=== PATIENT | female | born 1980 | race Hispanic/Latino ===

== ENCOUNTER 2019-08-24 04:43 | Emergency (ER) | payer OTHER ==
[~2019-08-24 04:43] MED LIST: INSULIN REG; NPH SQ
[2019-08-24] MEDS ORDERED: LIDOCAINE HCL 1% 20 ML VIAL ONE (05:26)
[2019-08-24] MEDS ORDERED: TETANUS/DIPHTHERIA TOXOID [ADULT] 0.5 ML VIAL IM ONE (05:27)
== END 2019-08-24 07:08 | disposition home or self-care (01) ==
LOC: EDH 04:43
DX: S91.311A Laceration without foreign body, right foot, initial encounter (principal); E11.9 Type 2 diabetes mellitus without complications; M19.90 Unspecified osteoarthritis, unspecified site; Z98.890 Other specified postprocedural states; W25.XXXA Contact with sharp glass, initial encounter; Y93.89 Activity, other specified; Y92.89 Other specified places as the place of occurrence of the external cause; Y99.8 Other external cause status
CPT/HCPCS: 12042; 73610; 81025; 90471; 90714

== ENCOUNTER 2020-06-06 15:54 | Inpatient (IN) | payer OTHER ==
[~2020-06-06] VITALS: Ht 160 cm; Wt 152.2 kg
[2020-06-06 16:41] LABS: BASOPHILS % (AUTO) 0.2 % (0.0-5.0); EOSINOPHILS % (AUTO) 0.4 % (0.0-8.0); LYMPHOCYTES % (AUTO) 3.2 % (21.0-51.0); MEAN CORPUSCULAR HEMOGLOBIN 26.9 pg (27.0-33.0); MEAN CORPUSCULAR HGB CONC 32.2 g/dL (32.0-36.0); MEAN CORPUSCULAR VOLUME 83.7 fL (79-99); MONOCYTES % (AUTO) 3.7 % (3.0-13.0); PLATELET COUNT (AUTO) 261 K/uL (130-400); RED BLOOD CELL COUNT(AUTO) 4.42 MIL/uL (4.00-5.50); RED CELL DISTRIBUTION WIDTH 14.6 % (11.0-15.5); WHITE BLOOD COUNT (AUTO) 23.6 K/uL (4.8-10.8)
[2020-06-06 16:49] LABS: APPEARANCE,URINE Clear (CLEAR); BILIRUBIN,URINE Small (NEGATIVE); COLOR,URINE Dark Yellow (YELLOW); GLUCOSE, URINE (UA) 250 mg/dL (NEGATIVE); KETONES,URINE 15 mg/dL (NEGATIVE); LEUKOCYTE ESTERASE ,URINE Negative (NEGATIVE); NITRATE,URINE Negative (NEGATIVE); OCCULT BLOOD,URINE Negative (NEGATIVE); PROTEIN,URINE POS 1+ mg/dL (NEGATIVE)
[2020-06-06 16:54] LABS: CREATININE 1.1 mg/dL (0.5-1.5); POTASSIUM 3.4 mmol/L (3.5-5.1)
[2020-06-06 16:55] LABS: INR 1.14 (0.85-1.15); PARTIAL THROMBOPLASTIN TIME 33.6 SEC (26.3-35.5); PROTHROMBIN TIME 12.2 SEC (9.6-11.6)
[2020-06-06 16:59] LABS: BACTERIA,URINE Rare /HPF (None Seen); MUCUS,URINE Few LPF (None Seen); RBC,URINE 0-1 /HPF (0-1); SQUAMOUS EPITHELIAL CELL,UR Few /HPF (0-2); WBC,URINE 0-1 /HPF (0-1)
[2020-06-06 16:59] LABS: ALBUMIN 3.2 g/dL (3.5-5.0); BILIRUBIN,TOTAL 0.5 mg/dL (0.2-1.0)
[2020-06-06 17:00] LABS: YEAST,URINE BUDDING Few /HPF (None Seen)
[2020-06-06] MEDS ORDERED: ZOSYN 3.375GM+NS 50ML 50 ML IV ONE (17:00)
[2020-06-06] MEDS ORDERED: ONDANSETRON HCL 4 MG/2 ML VIAL ONE (17:00)
[2020-06-06] MEDS ORDERED: MORPHINE SULFATE 2 MG/ML 1ML SYG ONE (17:00)
[2020-06-06] MEDS ORDERED: VANCOMYCIN 1GM+NS 250ML 250 ML IV ONE (18:22)
[2020-06-06] MEDS ORDERED: DEXTROSE 50%-WATER 50 ML DISP.SYRIN IV ONE (18:42)
[2020-06-06] MEDS ORDERED: VANCOMYCIN PROTOCOL PER PHARMACY IV SCH (19:15)
[2020-06-06] MEDS: SODIUM CHLORIDE 0.9% 1000ML 1,000 ML IV SCH (19:15)
[2020-06-06] MEDS ORDERED: POTASSIUM CHLORIDE 10% ELIXIR 20 MEQ/15 ML UDCUP PO PRN (19:15)
[2020-06-06] MEDS ORDERED: DEXTROSE 50%-WATER 50 ML DISP.SYRIN IV PRN (19:15)
[2020-06-06] MEDS ORDERED: GLUCAGON 1MG KIT 1 MG ML IM PRN (19:15)
[2020-06-06] MEDS ORDERED: LACTULOSE 20 GM/30 ML UDCUP PO PRN (19:15)
[2020-06-06] MEDS ORDERED: ONDANSETRON HCL 4 MG/2 ML VIAL IV PRN (19:15)
[2020-06-06] MEDS ORDERED: MORPHINE SULFATE 2 MG/ML 1ML SYG IV PRN (19:15)
[2020-06-06] MEDS ORDERED: ACETAMINOPHEN 325 MG TAB PO PRN ×2 (19:15)
[2020-06-06] MEDS: INSULIN HUMULIN R 100 UNIT/ML 3ML SQ SCH (21:00)
[2020-06-06] MEDS: FAMOTIDINE 20MG TAB 20 MG TAB PO SCH (21:00)
[2020-06-06] MEDS ORDERED: VANCOMYCIN 1.5 GM in SODIUM CHLORIDE 0.9% 250 ML IV ONE (21:00)
[2020-06-06] MEDS ORDERED: COMPOUND IV REFRIGERATED 1 EACH IVSOLN MISC PRN (21:00)
[2020-06-06] MEDS ORDERED: MORPHINE SULFATE 4 MG/1ML SYG ONE (21:19)
[2020-06-06] MEDS ORDERED: ACETAMINOPHEN 325 MG TAB ONE (22:01)
[2020-06-06] MEDS ORDERED: FAMOTIDINE/PF 20 MG/2 ML VIAL IV ONE (22:02)
[2020-06-07] MEDS ORDERED: MORPHINE SULFATE 4 MG/1ML SYG ONE ×2 (00:51→04:25)
[2020-06-07] MEDS: ZOSYN 3.375GM+NS 50ML 50 ML IV SCH ×3 (01:00→17:00)
[2020-06-07] MEDS ORDERED: ZOSYN 3.375GM+NS 50ML 50 ML IV ONE ×3 (03:06→19:59)
[2020-06-07] MEDS: SODIUM CHLORIDE 0.9% 1000ML 1,000 ML IV SCH ×2 (05:15→15:15)
[2020-06-07 06:39] LABS: BASOPHILS % (AUTO) 0.3 % (0.0-5.0); HEMATOCRIT 35.8 % (36-48); LYMPHOCYTES % (AUTO) 7.2 % (21.0-51.0); MEAN CORPUSCULAR HEMOGLOBIN 27.5 pg (27.0-33.0); MEAN CORPUSCULAR HGB CONC 31.3 g/dL (32.0-36.0); MONOCYTES % (AUTO) 6.6 % (3.0-13.0); NEUTROPHILS % (AUTO) 84.4 % (40.0-77.0); PLATELET COUNT (AUTO) 233 K/uL (130-400); RED BLOOD CELL COUNT(AUTO) 4.07 MIL/uL (4.00-5.50); RED CELL DISTRIBUTION WIDTH 14.9 % (11.0-15.5); WHITE BLOOD COUNT (AUTO) 15.5 K/uL (4.8-10.8)
[2020-06-07 06:51] LABS: POTASSIUM 4.5 mmol/L (3.5-5.1)
[2020-06-07] MEDS: INSULIN HUMULIN R 100 UNIT/ML 3ML SQ SCH ×4 (07:30→21:00)
[2020-06-07] MEDS ORDERED: INSULIN HUMULIN R 100 UNIT/ML 3ML ONE ×2 (08:31→12:39)
[2020-06-07] MEDS: VANCOMYCIN 1.75 GM in SODIUM CHLORIDE 0.9% 250 ML IV SCH (09:00)
[2020-06-07] MEDS: FAMOTIDINE 20MG TAB 20 MG TAB PO SCH ×2 (09:00→21:00)
[2020-06-07] MEDS: ENOXAPARIN SODIUM 40 MG/0.4 ML SYRINGE SQ SCH (09:00)
[2020-06-07] MEDS ORDERED: SODIUM CHLORIDE 0.9% 1000ML 1,000 ML IV ONE (10:07)
[2020-06-07] MEDS ORDERED: FAMOTIDINE 20MG TAB 20 MG TAB ONE ×2 (10:07→22:11)
[2020-06-07] MEDS ORDERED: ENOXAPARIN SODIUM 40 MG/0.4 ML SYRINGE SQ ONE (10:07)
[2020-06-07] MEDS ORDERED: HYDROMORPHONE 1 MG/1 ML AMP ONE ×2 (12:06→23:40)
[2020-06-07] MEDS ORDERED: GADODIAMIDE 10 MMOL/20 ML VIAL IV ONE (14:23)
--- NOTE | 2020-06-07 15:42 | NUR ---
AGUSTINA NOTE/IA UNABLE TO MET WITH PATIENT IN ROOM, NEXT OF KIN CALLED, PASCALE PERALES. PER MOTHER, PATIENT LIVES WITH SPOUSE AND 3 OF HER CHILDREN, IS SEMI INDEPENDENT WITH ADLS, HAS USE OF [facility] FOR WOUND CARE DAILY, NO DME IN USE AND FEELS SAFE FOR PATIENT TO RETURN HOME ONCE DISCHARGED. Addendum: 06/07/20 at 1544 by AMBER ERWIN RN CM Amended: Links added.
[2020-06-07] MEDS ORDERED: HYDROMORPHONE HCL 0.5 MG/0.5 ML ML ONE (19:48)
[2020-06-08] VITALS (7 sets, daily range): BP systolic 119–160; BP diastolic 53–88
--- NOTE | 2020-06-08 00:20 | NUR ---
ADMIT PT ADMITTED TO ROOM 314, FROM ER. PT CLAIMS OF PAINS TO LLE BUT IS ALREADY MEDICATED BY ER NURSE WITH DILAUDID. ADMISSION CARE DONE. ADMISSION DATA BASE COMPLETED. STARTED IVF OR NS REGULATED AT 100CC/HR. LEXI SWANSON AND SACHA NORMAN. KEPT LLE ELEVATED IN BED. IN FOR MORE CARE AND MANAGEMENT. Addendum: 06/08/20 at 0159 by QUAN LENZ RN RN Amended: Links added.
[2020-06-08] MEDS: SODIUM CHLORIDE 0.9% 1000ML 1,000 ML IV SCH ×3 (00:49→21:56)
[2020-06-08] MEDS: ZOSYN 3.375GM+NS 50ML 50 ML IV SCH ×3 (00:49→18:00)
[2020-06-08] MEDS: VANCOMYCIN 1.75 GM in SODIUM CHLORIDE 0.9% 250 ML IV SCH ×2 (00:51→11:08)
[2020-06-08] MEDS ORDERED: INSU100V3 SQ (01:13)
[2020-06-08] MEDS ORDERED: DULO60CA64 PO (01:13)
[2020-06-08] MEDS ORDERED: METO25TA6 PO (01:13)
[2020-06-08] MEDS ORDERED: GABA600T10 PO (01:13)
[2020-06-08] MEDS ORDERED: TYL2 PO (01:13)
[2020-06-08] MEDS ORDERED: APIX5TAB PO (01:13)
[2020-06-08] MEDS ORDERED: NPH,100V SQ (01:13)
[2020-06-08] MEDS ORDERED: TRAZ-187 PO (01:13)
[2020-06-08] MEDS: KETOROLAC TROMETHAMINE 15MG/ML IV SCH (02:00)
[2020-06-08] MEDS ORDERED: KETOROLAC TROMETHAMINE 30MG/ML ONE (02:05)
--- NOTE | 2020-06-08 02:15 | NUR ---
PAIN PT CLAIMS OF PAINS STILL ON LLE. PAGED AJ, ASSOCIATE PROFESSOR PHYSICIAN HEELER FOR HOSPITALIST, VIA ANSWERING SERVICE. ASSOCIATE PROFESSOR PHYSICIAN CALLED AND REFERRED PT'S MEDS. NEW ORDERS GIVEN, PLEASE REFER TO CPOE. MEDICATED PT WITH TORADOL IV ORDERED. PIV TO RAC NOTED TO BE INFILTRATED, DISCONTINUED WITH CATHETER INTACT. RE-INSERTED PIV G20 TO RFA THEN CONTINUED IV ZOSYN INFUSION. PT CLAIMS OF HAVING SOB JUST MOVING IN BED. WITH CLEAR BREATH SOUNDS UPON AUSCULTATION. O2 SATS=94%. KEPT PT ON O2 AT 2LPM VIA NC. KEPT RESTED AND COMFORTABLE IN BED WITH HOB ELEVATED. CALL LIGHT WITHIN REACH. WILL RE-ASSESS PT. Addendum: 06/08/20 at 0428 by QUAN LENZ RN RN Amended: Links added.
[2020-06-08] MEDS ORDERED: TRAZODONE HCL 100 MG TABLET PO PRN (03:00)
[2020-06-08] MEDS ORDERED: DULOXETINE HCL 30 MG CAP PO SCH (03:00)
[2020-06-08 05:49] LABS: BASOPHILS % (AUTO) 0.3 % (0.0-5.0); EOSINOPHILS % (AUTO) 0.3 % (0.0-8.0); HEMATOCRIT 34.4 % (36-48); LYMPHOCYTES % (AUTO) 10.9 % (21.0-51.0); MEAN CORPUSCULAR HEMOGLOBIN 26.8 pg (27.0-33.0); MEAN CORPUSCULAR HGB CONC 30.8 g/dL (32.0-36.0); MEAN CORPUSCULAR VOLUME 86.9 fL (79-99); MONOCYTES % (AUTO) 5.1 % (3.0-13.0); NEUTROPHILS % (AUTO) 82.8 % (40.0-77.0); PLATELET COUNT (AUTO) 234 K/uL (130-400); RED BLOOD CELL COUNT(AUTO) 3.96 MIL/uL (4.00-5.50); RED CELL DISTRIBUTION WIDTH 14.8 % (11.0-15.5); WHITE BLOOD COUNT (AUTO) 13.7 K/uL (4.8-10.8)
--- NOTE | 2020-06-08 05:49 | NUR ---
ROUNDS PT IS FAIRLY ASLEEP, SNORING. KEPT UNDISTURBED FOR NOW. CALL LIGHT WITHIN REACH. FOR MORE CARE.
[2020-06-08 06:02] LABS: POTASSIUM 3.5 mmol/L (3.5-5.1)
[2020-06-08] MEDS: INSULIN HUMULIN R 100 UNIT/ML 3ML SQ SCH ×4 (06:05→21:41)
[2020-06-08] MEDS: GABAPENTIN 300 MG CAPSULE PO SCH ×3 (09:00→21:50)
--- NOTE | 2020-06-08 09:51 | NUR ---
Answered call light, pt states "I just feel like I can't breathe and it scares me." Pt's mother stated "She has a fever and she's not hooked up to her antibiotics." Notified primary nurse Mahnaz, who will administer abx according to schedule. Pt's O2 sat is currently 92% on 2 LPM via NC, increased to 3 lpm. Temp is 98.1 orally and 98[address] Ruben Jackson of pt c/o, he entered room and assessed pt. Rec'd orders for stat 12 lead EKG, CXR, and telemetry monitoring. Orders entered and honored.
[2020-06-08] MEDS: FAMOTIDINE 20MG TAB 20 MG TAB PO SCH ×2 (10:26→21:49)
[2020-06-08] MEDS: DULOXETINE HCL 30 MG CAP PO SCH ×2 (10:27→21:49)
[2020-06-08] MEDS: METOPROLOL TARTRATE 25 MG TAB PO SCH (10:27)
[2020-06-08] MEDS: ENOXAPARIN SODIUM 40 MG/0.4 ML SYRINGE SQ SCH (10:29)
[2020-06-08] MEDS: HYDROMORPHONE 1 MG/1 ML AMP IVP PRN ×3 (11:07→23:34)
[2020-06-08] MEDS: ENOXAPARIN SODIUM 100 MG/1 ML SQ SCH ×2 (12:15→21:49)
[2020-06-08 13:19] LABS: ABG BASE EXCESS -5.1 mmol/L (-2.0-3.0); ABG HCO3 19.6 mmol/L (21.0-28.0); ABG OXYGEN SATURATION 90.1 % (95.0-99.0); ABG PCO2 35 mmHg (32-45)
[2020-06-08] MEDS ORDERED: IOHEXOL 350 MG/ML 100ML INFUS..BTL IV ONE (13:54)
[2020-06-08 14:02] LABS: CRP QUANTITATIVE 47.3 mg/L (0.00-9.0)
[2020-06-08] MEDS: POTASSIUM CHLORIDE 20 MEQ ERTAB PO PRN ×2 (19:16→21:50)
[2020-06-08] MEDS: TRAZODONE HCL 100 MG TABLET PO SCH (21:51)
[2020-06-09] MEDS ORDERED: IPRATROPIUM/ALBUTEROL SULFATE 3 ML SOLUTION IH SCH
[2020-06-09] MEDS ORDERED: SODIUM CHLORIDE 3% FOR INHALATION 4 ML/AMP VIAL.NEB IH ONE (00:24)
[2020-06-09] MEDS: ZOSYN 3.375GM+NS 50ML 50 ML IV SCH ×3 (00:39→17:38)
[2020-06-09] MEDS: FUROSEMIDE 10 MG/ML 2ML VIAL IV SCH ×3 (00:40→22:11)
[2020-06-09] MEDS: KETOROLAC TROMETHAMINE 15MG/ML IV SCH (02:00)
[2020-06-09] MEDS: HYDROMORPHONE 1 MG/1 ML AMP IVP PRN ×2 (03:31→13:48)
[2020-06-09 04:04] VITALS: BP 139/61
[2020-06-09 06:08] LABS: BASOPHILS % (AUTO) 0.2 % (0.0-5.0); EOSINOPHILS % (AUTO) 0.4 % (0.0-8.0); HEMATOCRIT 32.9 % (36-48); LYMPHOCYTES % (AUTO) 16.3 % (21.0-51.0); MEAN CORPUSCULAR HEMOGLOBIN 26.9 pg (27.0-33.0); MEAN CORPUSCULAR HGB CONC 31.6 g/dL (32.0-36.0); MONOCYTES % (AUTO) 8.7 % (3.0-13.0); NEUTROPHILS % (AUTO) 73.7 % (40.0-77.0); PLATELET COUNT (AUTO) 235 K/uL (130-400); RED BLOOD CELL COUNT(AUTO) 3.87 MIL/uL (4.00-5.50); RED CELL DISTRIBUTION WIDTH 14.8 % (11.0-15.5); WHITE BLOOD COUNT (AUTO) 11.6 K/uL (4.8-10.8)
[2020-06-09] MEDS: INSULIN HUMULIN R 100 UNIT/ML 3ML SQ SCH ×4 (06:26→22:06)
[2020-06-09 06:54] LABS: CREATININE 0.8 mg/dL (0.5-1.5); POTASSIUM 3.4 mmol/L (3.5-5.1)
[2020-06-09] MEDS: SODIUM CHLORIDE 0.9% 1000ML 1,000 ML IV SCH (07:15)
--- NOTE | 2020-06-09 07:15 | NUR ---
PATIENT UPDATE PT ASKED FOR PAIN MED DILAUDID 1 MG IVQ 4 HRS FOR LEFT LEG PAIN WITH PAIN CORE OF 8/10. CONSCIOUS ABOUT THE Q 4 HRS NEEDED TIME. BREATH SOUNDS VERY DIMINISHED, TACHYPNEIC RR IN THE HIGH 20'S. RT ADM THE ORDERED NEBULIZER TX WITH CPT. RT APPLIED THE CPAP MASK AND PT WAS COMFORTABLY SLEEPING WITH IT ON, WITH O2 SAT UP TO 96% BUT WOKE UP WHEN SHE HAD THE URGE TO VOID AND REFUSED TO PUT THE CPAP MASK BACK ON AFTERWARDS. REINFORCED INCENTIVE SPIROMETER EXERCISES. PT OBSERVED FACE TIMING ON HER PHONE WITH SOMEBODY DURING THE NIGHT IN BETWEEN THE DILAUDID PRN. PT AND MOTHER STRONGLY REFUSED THE CPAP SINCE SHE WAS APPARENTLY TOLD BY THE DOCTOR THAT IT'S NOT ADVISABLE.
[2020-06-09 08:54] VITALS: BP 104/60
[2020-06-09] MEDS: VANCOMYCIN 1.75 GM in SODIUM CHLORIDE 0.9% 250 ML IV SCH (09:37)
[2020-06-09] MEDS: FAMOTIDINE 20MG TAB 20 MG TAB PO SCH ×2 (09:38→20:30)
[2020-06-09] MEDS: GABAPENTIN 300 MG CAPSULE PO SCH ×3 (09:38→20:29)
[2020-06-09] MEDS: DULOXETINE HCL 30 MG CAP PO SCH ×2 (09:39→20:31)
[2020-06-09] MEDS: METHYLPREDNISOLONE SOD SUCC 40MG/ML 1ML IVP SCH ×2 (09:40→20:30)
[2020-06-09] MEDS: METOPROLOL TARTRATE 25 MG TAB PO SCH (09:40)
[2020-06-09] MEDS: ENOXAPARIN SODIUM 100 MG/1 ML SQ SCH (09:42)
[2020-06-09] MEDS ORDERED: ALBUTEROL INHALER 90MCG/INH IH SCH (12:00)
[2020-06-09 12:31] VITALS: BP 168/74
[2020-06-09] MEDS: POTASSIUM CHLORIDE 20 MEQ ERTAB PO PRN ×2 (13:47→17:38)
[2020-06-09] MEDS ORDERED: DEXAMETHASONE SOD PHOSPHATE 4 MG/ML 1ML VIAL IVP SCH (15:36)
[2020-06-09] MEDS: METOCLOPRAMIDE 10 MG/2 ML VIAL IVP SCH (17:35)
[2020-06-09] MEDS ORDERED: ALBUTEROL SULFATE 0.083% 2.5 MG/3 ML INH IH SCH (18:00)
[2020-06-09] MEDS: ALBUTEROL INHALER 90MCG/INH IH SCH (18:04)
[2020-06-09] MEDS: ENOXAPARIN SODIUM 80 MG/0.8 ML SQ SCH (20:28)
[2020-06-09] MEDS: TRAZODONE HCL 100 MG TABLET PO SCH (20:29)
[2020-06-09 21:33] VITALS: BP 133/75
--- NOTE | 2020-06-09 23:24 | NUR ---
NOTE CHANGED PT'S DRESSING TO LLE. APPLIED DRY GAUZE, WRAPPED WITH KERLIX AND SECURED WITH TAPE. PT REPORTS THAT H.H. HAD BEEN DOIN WOUND CARE PREVIOUSLY AND IS CONCERNED SINCE NO WOUND CARE HAS BEEN DONE SINCE ADMISSION. LLE APPEARS DRY WITH INCISIONS SCABBED OVER. SLIGHT AMOUNT OF LIGHT YELLOW DRAINAGE WAS NOTED ON PREVIOUS DRESSING.
--- NOTE | 2020-06-09 23:27 | NUR ---
NOTE ASSISTED PT TO BEDSIDE COMMODE. OBSERVED PT TO BE TACHYPNEIC (RR 24) WITH NC ON @ 5 LPM. PT VOICED THAT SHE WOULD RATHER GO TO THE RESTROOM. EXPLAINED THAT I WOULD ASSIST HER TO THE RESTROOM ONCE I GOT AN O2 TANK. ONCE O2 TANK IN ROOM HELPED PT TO BATHROOM, O2 @ 5 LPM VIA NC. INSTRUCTED FOR PT TO CALL FOR ASSISTANCE IN RESTROOM ONCE COMPLETED- PT VERBALIZED UNDERSTANDING. EVAN PCP ASSISTED PT BACK INTO BED. AN ADULT BRIEF WAS PLACED D/T PT REQUEST SINCE SHE IS ON HER MENSTRUAL CYCLE. VISIBLE SOB NOTED. O2 TUBING WAS CONNECTED TO WALL O2. AFTER A COUPLE OF MINUTES MT RR 20-22, REPORTS THAT SHE "FEELS BETTER". CALL LIGHT WITHIN REACH, BED LOCKED IN LOWEST POSITION. WILL CONT TO MONITOR.
--- NOTE | 2020-06-09 23:51 | NUR ---
EDIT TIME/ DATE: 06/09/20 @1934. Addendum: 06/09/20 at 2352 by CHANDAN URBINA RN RN Amended: Links added.
[2020-06-10 00:27] VITALS: BP 130/68
--- NOTE | 2020-06-10 00:27 | NUR ---
COVID PCR NEGATIVE. RESULTS REPORTED TO JORDI, RECYCLING CREW SUPERVISOR AND RADHA BASS. GURVINDER MANN GAVE ORDERS TO TRANSFER PT TO PCCU/ NON-COVID. JOVITA SUP MADE AWARE- PENDING CALL BACK FROM JORDI.
--- NOTE | 2020-06-10 00:34 | NUR ---
UPDATE PT TO TRANSFER TO [facility] PER VAT HOUSE LABORER.
[2020-06-10] MEDS: ZOSYN 3.375GM+NS 50ML 50 ML IV SCH ×3 (00:47→16:42)
[2020-06-10] MEDS: HYDROMORPHONE 1 MG/1 ML AMP IVP PRN (01:17)
[2020-06-10] MEDS: KETOROLAC TROMETHAMINE 15MG/ML IV SCH (02:00)
[2020-06-10 04:16] VITALS: BP 117/62
--- NOTE | 2020-06-10 05:00 | NUR ---
PATIENT'S IV LEAKING, WAS NOTED TO BE OUT. IV CATHETER INTACT, DRESSING PLACED
[2020-06-10] MEDS: ALBUTEROL INHALER 90MCG/INH IH SCH ×2 (06:00)
[2020-06-10 06:25] LABS: BASOPHILS % (AUTO) 0.1 % (0.0-5.0); HEMATOCRIT 32.6 % (36-48); LYMPHOCYTES % (AUTO) 10.5 % (21.0-51.0); MEAN CORPUSCULAR HEMOGLOBIN 26.9 pg (27.0-33.0); MEAN CORPUSCULAR HGB CONC 32.2 g/dL (32.0-36.0); MEAN CORPUSCULAR VOLUME 83.6 fL (79-99); MONOCYTES % (AUTO) 5.2 % (3.0-13.0); NEUTROPHILS % (AUTO) 83.5 % (40.0-77.0); PLATELET COUNT (AUTO) 256 K/uL (130-400); RED CELL DISTRIBUTION WIDTH 14.4 % (11.0-15.5); WHITE BLOOD COUNT (AUTO) 10.1 K/uL (4.8-10.8)
[2020-06-10 06:29] LABS: CREATININE 0.8 mg/dL (0.5-1.5); POTASSIUM 3.5 mmol/L (3.5-5.1)
[2020-06-10] MEDS: INSULIN HUMULIN R 100 UNIT/ML 3ML SQ SCH ×4 (06:55→21:00)
[2020-06-10 07:09] LABS: CRP QUANTITATIVE 217.7 mg/L (0.00-9.0)
--- NOTE | 2020-06-10 07:39 | NUR ---
ARRIVAL TO FLOOR PATIENT A & O 4, IN NO APPARENT DISTRESS. ARRIVED WITH 5L NC TO THE FLOOR. ORIENTED PATIENT TO THE ROOM, PLACED CALL LIGHT WITHIN REACH. Addendum: 06/10/20 at 0741 by LENIN MODI RN RN [id number] PATIENT ARRIVED TO FLOOR
[2020-06-10 07:45] VITALS: BP 117/57
--- NOTE | 2020-06-10 07:45 | NUR ---
IV MEDICATION UNABLE TO ADMINISTER IV 0730 REGLAN, PATIENT WITH NO IV ACCESS. ENDORSED TO CONRAD TORRES
[2020-06-10] MEDS ORDERED: INSULIN GLARGINE 100 UNITS/ML 10 ML VIAL SQ SCH (09:00)
[2020-06-10] MEDS ORDERED: DEXAMETHASONE SOD PHOSPHATE 4 MG/ML 1ML VIAL IVP SCH (09:00)
[2020-06-10] MEDS: DULOXETINE HCL 30 MG CAP PO SCH ×2 (09:25→21:21)
[2020-06-10] MEDS: GABAPENTIN 300 MG CAPSULE PO SCH ×3 (09:28→21:21)
[2020-06-10] MEDS: METOPROLOL TARTRATE 25 MG TAB PO SCH (09:29)
[2020-06-10] MEDS: FAMOTIDINE 20MG TAB 20 MG TAB PO SCH ×2 (09:30→21:21)
[2020-06-10] MEDS: ENOXAPARIN SODIUM 80 MG/0.8 ML SQ SCH ×2 (09:32→21:24)
[2020-06-10] MEDS: METOCLOPRAMIDE 10 MG/2 ML VIAL IVP SCH ×3 (09:33→17:16)
--- NOTE | 2020-06-10 09:42 | NUR ---
DYSPHAGIA EVPHI COMPLETED. -S/S OF ASPIRATION. RECOMMEND REGULAR TEXTURE, THIN LIQUIDS; PILLS WHOLE WITH LIQUIDS. Addendum: 06/10/20 at 0943 by VIOLETTE BANSAL, [facility] Amended: Links added.
[2020-06-10] MEDS: VANCOMYCIN 1.75 GM in SODIUM CHLORIDE 0.9% 250 ML IV SCH (09:59)
[2020-06-10 10:42] LABS: ABG BASE EXCESS -0.6 mmol/L (-2.0-3.0); ABG HCO3 24.4 mmol/L (21.0-28.0); ABG OXYGEN SATURATION 97.2 % (95.0-99.0); ABG PCO2 42 mmHg (32-45)
[2020-06-10] MEDS ORDERED: IPRATROPIUM/ALBUTEROL SULFATE 3 ML SOLUTION IH SCH (11:00)
[2020-06-10 11:44] VITALS: BP 108/40
[2020-06-10] MEDS: FUROSEMIDE 10 MG/ML 2ML VIAL IV SCH ×2 (16:42→23:45)
--- NOTE | 2020-06-10 17:18 | NUR ---
RD NOTIFICATION Pt admitted due to LLE cellulitis. Pt is currently on a 75 gm CC diet with ensure TID. PO consumption 75-100% As per RN pt dislikes ensure ONS. RD called pt's room, no answer. Pt's BMI of 55.7 is classified as obesity III. 295% IBW classified as morbid obesity. RD RECOMMENDATION Continue current diet order of 75 gm CC D/C Ensure TID due to pt preference. ProMod 60 ml BID (will provide 40 gm protein) Monitor labs. Assess need for Sea BID. Pt may benefit from MVI When medically feasible consider running iron labs, B12 and Folic Acid RD will continue to monitor PO intake LABS: WBC 10.1, BG 262, TOT CA 9.1, ALB 3.2, TOT PRO 8.0, CRP 217.7, BNP 59 Addendum: 06/10/20 at [address] Amended: Links added.
[2020-06-10 17:58] VITALS: BP 101/38
[2020-06-10] MEDS: IPRATROPIUM/ALBUTEROL SULFATE 3 ML SOLUTION IH SCH ×2 (18:59→22:53)
[2020-06-10 20:10] VITALS: BP 124/71
[2020-06-10] MEDS: TRAZODONE HCL 100 MG TABLET PO SCH (21:21)
[2020-06-11 00:33] VITALS: BP 97/46
[2020-06-11] MEDS: ZOSYN 3.375GM+NS 50ML 50 ML IV SCH (01:21)
[2020-06-11] MEDS: HYDROMORPHONE HCL 0.5 MG/0.5 ML ML IVP PRN ×2 (01:40→20:52)
[2020-06-11] MEDS: KETOROLAC TROMETHAMINE 15MG/ML IV SCH (02:00)
--- NOTE | 2020-06-11 02:55 | NUR ---
PATIENT BLOOD PRESSURE INFORMED OCCUPATIONAL THERAPIST REHAB MANAGER TURBO ELECTRIC OPERATOR OF PATIENT'S BLOOD PRESSURE BEING IN LOW 90'S GEN. STATED TO HOLD OFF ON LASIX FOR NOW AND TO MONITOR PATIENT BP. NO OTHER ORDERS RECEIVED AT THIS TIME. WILL CONTINUE TO MONITOR THE PATIENT Addendum: 06/11/20 at 8396 by LENIN MODI RN RN OCCUPATIONAL THERAPIST REHAB MANAGER PAGED AT [phone]
[2020-06-11 03:48] VITALS: BP 95/36
[2020-06-11 05:09] LABS: BASOPHILS % (AUTO) 0.2 % (0.0-5.0); EOSINOPHILS % (AUTO) 0.2 % (0.0-8.0); HEMATOCRIT 32.7 % (36-48); LYMPHOCYTES % (AUTO) 27.2 % (21.0-51.0); MEAN CORPUSCULAR HEMOGLOBIN 26.9 pg (27.0-33.0); MEAN CORPUSCULAR HGB CONC 32.1 g/dL (32.0-36.0); MEAN CORPUSCULAR VOLUME 83.8 fL (79-99); MONOCYTES % (AUTO) 6.7 % (3.0-13.0); NEUTROPHILS % (AUTO) 65.2 % (40.0-77.0); PLATELET COUNT (AUTO) 322 K/uL (130-400); RED CELL DISTRIBUTION WIDTH 14.6 % (11.0-15.5)
[2020-06-11 05:16] LABS: HEMOGLOBIN A1C 7.4 % (4.0-6.0)
[2020-06-11 05:28] LABS: ALBUMIN 2.5 g/dL (3.5-5.0); BILIRUBIN,TOTAL 0.3 mg/dL (0.2-1.0)
[2020-06-11 05:29] LABS: POTASSIUM 2.4 mmol/L (3.5-5.1)
[2020-06-11] MEDS: POTASSIUM CHLORIDE 20 MEQ ERTAB PO PRN ×2 (05:52→10:16)
[2020-06-11] MEDS: IPRATROPIUM/ALBUTEROL SULFATE 3 ML SOLUTION IH SCH ×3 (06:18→17:23)
[2020-06-11] MEDS: INSULIN HUMULIN R 100 UNIT/ML 3ML SQ SCH ×4 (06:35→20:51)
[2020-06-11] MEDS: METOCLOPRAMIDE 10 MG/2 ML VIAL IVP SCH ×3 (06:47→17:00)
[2020-06-11] MEDS ORDERED: MAGNESIUM 2GM PREMIX 50ML 50 ML IV PRN (08:00)
[2020-06-11 08:30] VITALS: BP 107/62
[2020-06-11] MEDS: LIDOCAINE HCL-MPF 1% 2ML VIAL IV PRN ×2 (08:42→10:17)
[2020-06-11] MEDS: POTASSIUM CHLORIDE 10MEQ/100ML 100 ML IV PRN ×2 (08:42→10:17)
[2020-06-11] MEDS: FAMOTIDINE 20MG TAB 20 MG TAB PO SCH ×2 (08:57→20:25)
[2020-06-11] MEDS: GABAPENTIN 300 MG CAPSULE PO SCH ×3 (08:58→20:25)
[2020-06-11] MEDS: METOPROLOL TARTRATE 25 MG TAB PO SCH (08:58)
[2020-06-11] MEDS: DULOXETINE HCL 30 MG CAP PO SCH ×2 (08:58→20:25)
[2020-06-11] MEDS: ENOXAPARIN SODIUM 80 MG/0.8 ML SQ SCH ×2 (09:22→20:27)
[2020-06-11] MEDS ORDERED: VANCOMYCIN 1.75 GM in SODIUM CHLORIDE 0.9% 250 ML IV SCH (11:15)
[2020-06-11] MEDS: FUROSEMIDE 10 MG/ML 2ML VIAL IV SCH (11:45)
[2020-06-11 12:17] VITALS: BP 112/53
[2020-06-11] MEDS ORDERED: ZOSYN 3.375GM+NS 50ML 50 ML IV SCH (13:00)
[2020-06-11 16:42] VITALS: BP 91/44
[2020-06-11 20:16] VITALS: BP 116/41
[2020-06-11] MEDS: TRAZODONE HCL 100 MG TABLET PO SCH (20:25)
[2020-06-11] MEDS: VANCOMYCIN 1.25 GM in SODIUM CHLORIDE 0.9% 250 ML IV SCH (20:26)
[2020-06-12] MEDS: HYDROMORPHONE HCL 0.5 MG/0.5 ML ML IVP PRN (00:18)
[2020-06-12] MEDS: KETOROLAC TROMETHAMINE 15MG/ML IV SCH (00:19)
[2020-06-12 00:39] VITALS: BP 108/54
[2020-06-12] MEDS: FUROSEMIDE 10 MG/ML 2ML VIAL IV SCH ×3 (02:08→20:36)
[2020-06-12 04:10] VITALS: BP 123/52
[2020-06-12] MEDS: IPRATROPIUM/ALBUTEROL SULFATE 3 ML SOLUTION IH SCH ×5 (06:25→23:45)
[2020-06-12 06:30] LABS: BASOPHILS % (AUTO) 0.4 % (0.0-5.0); EOSINOPHILS % (AUTO) 1.6 % (0.0-8.0); HEMATOCRIT 32.1 % (36-48); LYMPHOCYTES % (AUTO) 32.9 % (21.0-51.0); MEAN CORPUSCULAR HEMOGLOBIN 26.6 pg (27.0-33.0); MEAN CORPUSCULAR HGB CONC 31.5 g/dL (32.0-36.0); MEAN CORPUSCULAR VOLUME 84.5 fL (79-99); MONOCYTES % (AUTO) 7.6 % (3.0-13.0); NEUTROPHILS % (AUTO) 56.9 % (40.0-77.0); PLATELET COUNT (AUTO) 325 K/uL (130-400); RED CELL DISTRIBUTION WIDTH 14.3 % (11.0-15.5); WHITE BLOOD COUNT (AUTO) 9.4 K/uL (4.8-10.8)
[2020-06-12] MEDS: INSULIN HUMULIN R 100 UNIT/ML 3ML SQ SCH ×4 (06:33→21:29)
[2020-06-12] MEDS: METOCLOPRAMIDE 10 MG/2 ML VIAL IVP SCH ×3 (06:34→16:40)
[2020-06-12 06:43] LABS: ALBUMIN 2.5 g/dL (3.5-5.0); BILIRUBIN,TOTAL 0.3 mg/dL (0.2-1.0); CREATININE 0.7 mg/dL (0.5-1.5); PHOSPHORUS 3.8 mg/dL (2.5-4.9); POTASSIUM 3.3 mmol/L (3.5-5.1); TOTAL PROTEIN, SERUM 6.2 g/dL (6.0-8.3)
[2020-06-12] MEDS: POTASSIUM CHLORIDE 20 MEQ ERTAB PO PRN (06:52)
[2020-06-12 08:00] VITALS: BP 91/37
[2020-06-12] MEDS: METOPROLOL TARTRATE 25 MG TAB PO SCH (09:00)
[2020-06-12] MEDS: DULOXETINE HCL 30 MG CAP PO SCH ×2 (09:37→20:36)
[2020-06-12] MEDS: GABAPENTIN 300 MG CAPSULE PO SCH ×3 (09:37→20:40)
[2020-06-12] MEDS: FAMOTIDINE 20MG TAB 20 MG TAB PO SCH ×2 (09:37→20:36)
[2020-06-12] MEDS: ENOXAPARIN SODIUM 80 MG/0.8 ML SQ SCH ×2 (09:38→20:39)
[2020-06-12] MEDS: VANCOMYCIN 1.25 GM in SODIUM CHLORIDE 0.9% 250 ML IV SCH ×2 (09:38→20:35)
[2020-06-12] MEDS: INSULIN GLARGINE 100 UNITS/ML 10 ML VIAL SQ SCH (09:45)
[2020-06-12 10:30] VITALS: BP 111/47
[2020-06-12] MEDS ORDERED: FUROSEMIDE 10 MG/ML 4ML VIAL ONE (12:21)
--- NOTE | 2020-06-12 14:25 | NUR ---
CONSULT DR NUNEZ SPOKE TO DR NUNEZ OVER THE PHONE TO MAKE AWARE OF CONSULT. STATED HE WOULD COME AND SEE PATIENT.
[2020-06-12 16:00] VITALS: BP 146/82
[2020-06-12 19:20] VITALS: BP 117/42
--- NOTE | 2020-06-12 20:30 | NUR ---
PATIENT RESTING IN CHAIR. DENIES PAIN AT THIS TIME. SWELLING TO BLE. LLE HAS REDNESS TO CALF AND MCHUGH. INCISION TO L LEG FROM PREVIOUS SX AND DEBRIDEMENT. WOUND CARE DONE. DENIES SOB AT REST, ON RA. IV TO R ARM PATENT AND WITHOUT S/S OF INFECTION. . CALL LIGHT WITHIN REACH.
[2020-06-12] MEDS: TRAZODONE HCL 100 MG TABLET PO SCH (20:35)
--- NOTE | 2020-06-12 22:00 | NUR ---
SPOKE TO MAYRA. WILL SEE PATIENT 06/13
[2020-06-13] VITALS (7 sets, daily range): BP systolic 91–147; BP diastolic 41–100
[2020-06-13 03:41] LABS: BASOPHILS % (AUTO) 0.3 % (0.0-5.0); EOSINOPHILS % (AUTO) 2.1 % (0.0-8.0); HEMATOCRIT 32.7 % (36-48); LYMPHOCYTES % (AUTO) 28.5 % (21.0-51.0); MEAN CORPUSCULAR HEMOGLOBIN 26.7 pg (27.0-33.0); MEAN CORPUSCULAR HGB CONC 32.1 g/dL (32.0-36.0); MEAN CORPUSCULAR VOLUME 83.2 fL (79-99); NEUTROPHILS % (AUTO) 62.1 % (40.0-77.0); PLATELET COUNT (AUTO) 316 K/uL (130-400); RED BLOOD CELL COUNT(AUTO) 3.93 MIL/uL (4.00-5.50); RED CELL DISTRIBUTION WIDTH 14.2 % (11.0-15.5)
[2020-06-13 04:12] LABS: ALBUMIN 2.6 g/dL (3.5-5.0); BILIRUBIN,TOTAL 0.4 mg/dL (0.2-1.0); CREATININE 0.9 mg/dL (0.5-1.5); POTASSIUM 3.2 mmol/L (3.5-5.1); TOTAL PROTEIN, SERUM 6.6 g/dL (6.0-8.3)
[2020-06-13] MEDS: METOCLOPRAMIDE 10 MG/2 ML VIAL IVP SCH ×3 (06:23→15:46)
[2020-06-13] MEDS: POTASSIUM CHLORIDE 20 MEQ ERTAB PO PRN ×2 (06:25→10:29)
[2020-06-13] MEDS: INSULIN HUMULIN R 100 UNIT/ML 3ML SQ SCH ×5 (06:26→21:00)
[2020-06-13] MEDS: IPRATROPIUM/ALBUTEROL SULFATE 3 ML SOLUTION IH SCH ×3 (06:52→18:29)
--- NOTE | 2020-06-13 07:30 | NUR ---
BAYAT ROUNDED ON PATIENT. PER BAYAT PATIENT DOES NOT HAVE COMPARTMENT SYNDROME. START PATIENT ON ZOSYN
[2020-06-13] MEDS ORDERED: ZOSYN 3.375GM+NS 50ML 50 ML IV SCH (07:45)
[2020-06-13] MEDS: FAMOTIDINE 20MG TAB 20 MG TAB PO SCH ×2 (10:29→21:19)
[2020-06-13] MEDS: DULOXETINE HCL 30 MG CAP PO SCH ×2 (10:30→21:19)
[2020-06-13] MEDS: METOPROLOL TARTRATE 25 MG TAB PO SCH (10:30)
[2020-06-13] MEDS: ENOXAPARIN SODIUM 80 MG/0.8 ML SQ SCH ×3 (10:32→22:30)
[2020-06-13] MEDS: HONEY 1 APPL/ML TUBE TP SCH (10:33)
[2020-06-13] MEDS: GABAPENTIN 300 MG CAPSULE PO SCH ×3 (10:36→21:18)
[2020-06-13] MEDS: VANCOMYCIN 1.5 GM in SODIUM CHLORIDE 0.9% 250 ML IV SCH ×2 (10:39→21:23)
[2020-06-13] MEDS: INSULIN GLARGINE 100 UNITS/ML 10 ML VIAL SQ SCH (10:40)
[2020-06-13] MEDS: FUROSEMIDE 10 MG/ML 2ML VIAL IV SCH ×2 (10:41→22:30)
--- NOTE | 2020-06-13 16:31 | NUR ---
SPOKE TO PATIENT AT BEDSIDE REQUESTED BY MARCIA CARTAGENA D/C PLANNING TO A FACILITY PATIENT STATES WANTS TO GO HOME IF AT ALL POSSIBLE. PENDING RECOMMENDATIONS FOR ABX. Addendum: 06/13/20 at 1633 by SAVANNA ZAPATA RN CM Amended: Links added.
[2020-06-13] MEDS: TRAZODONE HCL 100 MG TABLET PO SCH (21:19)
[2020-06-14] MEDS: IPRATROPIUM/ALBUTEROL SULFATE 3 ML SOLUTION IH SCH ×4 (00:28→18:29)
[2020-06-14 03:40] VITALS: BP 109/59
[2020-06-14] MEDS: INSULIN HUMULIN R 100 UNIT/ML 3ML SQ SCH ×5 (06:00→20:17)
[2020-06-14] MEDS: METOCLOPRAMIDE 10 MG/2 ML VIAL IVP SCH ×3 (06:05→16:45)
[2020-06-14 08:00] VITALS: BP 103/49
[2020-06-14] MEDS: GABAPENTIN 300 MG CAPSULE PO SCH ×3 (10:03→20:14)
[2020-06-14] MEDS: FAMOTIDINE 20MG TAB 20 MG TAB PO SCH ×2 (10:03→20:14)
[2020-06-14] MEDS: DULOXETINE HCL 30 MG CAP PO SCH ×2 (10:03→20:14)
[2020-06-14] MEDS: METOPROLOL TARTRATE 25 MG TAB PO SCH (10:03)
[2020-06-14] MEDS: VANCOMYCIN 1.5 GM in SODIUM CHLORIDE 0.9% 250 ML IV SCH ×2 (10:04→22:41)
[2020-06-14] MEDS: ENOXAPARIN SODIUM 80 MG/0.8 ML SQ SCH (10:05)
[2020-06-14] MEDS: INSULIN GLARGINE 100 UNITS/ML 10 ML VIAL SQ SCH (10:21)
[2020-06-14] MEDS: HONEY 1 APPL/ML TUBE TP SCH (10:21)
--- NOTE | 2020-06-14 11:02 | NUR ---
DR. MEJIA IN ROOM SPEAKING WITH PT.
[2020-06-14 12:00] VITALS: BP 111/69
[2020-06-14] MEDS: FUROSEMIDE 10 MG/ML 2ML VIAL IV SCH (12:23)
--- NOTE | 2020-06-14 14:46 | NUR ---
CM NOTE/DC PLANNING PER DR. MEJIA WHO SPOKE WITH DR. BARBOZA, INFECTION DISEASE MD, PLAN IS TO DC HOME ONCE READY. PATIENT VERBALIZED UNDERSTANDING.
[2020-06-14 16:00] VITALS: BP 105/50
[2020-06-14 19:42] VITALS: BP 111/55
[2020-06-14] MEDS: TRAZODONE HCL 100 MG TABLET PO SCH (20:14)
[2020-06-14] MEDS: HYDROMORPHONE HCL 0.5 MG/0.5 ML ML IVP PRN (21:55)
[2020-06-14 23:07] VITALS: BP 107/55
[2020-06-14] MEDS ORDERED: FUROSEMIDE 10 MG/ML 2ML VIAL IV SCH (23:45)
[2020-06-15] MEDS: IPRATROPIUM/ALBUTEROL SULFATE 3 ML SOLUTION IH SCH ×5 (00:21→23:56)
[2020-06-15 03:28] VITALS: BP 102/48
[2020-06-15 05:37] LABS: HEMATOCRIT 39.4 % (36-48); MEAN CORPUSCULAR HEMOGLOBIN 26.1 pg (27.0-33.0); MEAN CORPUSCULAR VOLUME 84.4 fL (79-99); RED BLOOD CELL COUNT(AUTO) 4.67 MIL/uL (4.00-5.50); RED CELL DISTRIBUTION WIDTH 14.4 % (11.0-15.5)
[2020-06-15] MEDS: METOCLOPRAMIDE 10 MG/2 ML VIAL IVP SCH ×3 (05:50→16:35)
[2020-06-15] MEDS: INSULIN HUMULIN R 100 UNIT/ML 3ML SQ SCH ×7 (05:58→21:00)
[2020-06-15 06:00] LABS: ALBUMIN 3.1 g/dL (3.5-5.0); BILIRUBIN,TOTAL 0.3 mg/dL (0.2-1.0); CREATININE 1.1 mg/dL (0.5-1.5); POTASSIUM 3.1 mmol/L (3.5-5.1); TOTAL PROTEIN, SERUM 7.8 g/dL (6.0-8.3)
[2020-06-15] MEDS: POTASSIUM CHLORIDE 20 MEQ ERTAB PO PRN ×2 (06:16→08:49)
[2020-06-15 08:00] VITALS: BP 114/56
[2020-06-15] MEDS: DULOXETINE HCL 30 MG CAP PO SCH ×2 (08:49→22:04)
[2020-06-15] MEDS: METOPROLOL TARTRATE 25 MG TAB PO SCH (08:49)
[2020-06-15] MEDS: GABAPENTIN 300 MG CAPSULE PO SCH ×3 (08:49→22:05)
[2020-06-15] MEDS: FAMOTIDINE 20MG TAB 20 MG TAB PO SCH ×2 (08:49→22:04)
[2020-06-15] MEDS: ENOXAPARIN SODIUM 30 MG/0.3 ML SQ SCH (08:50)
[2020-06-15] MEDS: INSULIN GLARGINE 100 UNITS/ML 10 ML VIAL SQ SCH (08:52)
[2020-06-15] MEDS: HONEY 1 APPL/ML TUBE TP SCH (08:52)
[2020-06-15] MEDS: VANCOMYCIN 1.5 GM in SODIUM CHLORIDE 0.9% 250 ML IV SCH ×2 (09:42→22:05)
--- NOTE | 2020-06-15 10:39 | NUR ---
DR. Fahad MEJIA IN ROOM SPEAKING WITH PT. RE:PLAN OF CARE. QUESTIONS ANSWERED BY DR. MEJIA.
--- NOTE | 2020-06-15 11:29 | NUR ---
DR. Louie BARBOZA IN ROOM SPEAKING WITH PT.
[2020-06-15 11:33] VITALS: BP 110/64
--- NOTE | 2020-06-15 14:53 | NUR ---
RD FOLLOW UP Pt is currently on a 75 gm CC diet and receives ONS ProMod 60 ml BID Encourage ONS consumption PO intake is of 75% as per EMR RD RECOMMENDATION: Continue current diet order. Monitor BG levels, pt may benefit from 60 gm CC modifier Monitor PO intake. RD will continue to follow LABS: WBC 14, K 3.1, CL 100, GFR 59, BG 320, TOT CA 9.2, ALB 3.1, TOT PRO 7.8 Addendum: 06/15/20 at [address] Amended: Links added.
[2020-06-15 16:00] VITALS: BP 119/62
[2020-06-15 20:00] VITALS: BP 128/72
[2020-06-15] MEDS: TRAZODONE HCL 100 MG TABLET PO SCH (22:04)
[2020-06-15 23:46] VITALS: BP 122/66
[2020-06-16 04:00] VITALS: BP 107/65
[2020-06-16 05:56] LABS: BASOPHILS % (AUTO) 0.3 % (0.0-5.0); EOSINOPHILS % (AUTO) 2.3 % (0.0-8.0); HEMATOCRIT 36.3 % (36-48); LYMPHOCYTES % (AUTO) 23.5 % (21.0-51.0); MEAN CORPUSCULAR HEMOGLOBIN 26.6 pg (27.0-33.0); MEAN CORPUSCULAR HGB CONC 31.4 g/dL (32.0-36.0); MEAN CORPUSCULAR VOLUME 84.6 fL (79-99); MONOCYTES % (AUTO) 9.2 % (3.0-13.0); NEUTROPHILS % (AUTO) 64.1 % (40.0-77.0); PLATELET COUNT (AUTO) 364 K/uL (130-400); RED BLOOD CELL COUNT(AUTO) 4.29 MIL/uL (4.00-5.50); RED CELL DISTRIBUTION WIDTH 14.5 % (11.0-15.5); WHITE BLOOD COUNT (AUTO) 12.6 K/uL (4.8-10.8)
[2020-06-16] MEDS: IPRATROPIUM/ALBUTEROL SULFATE 3 ML SOLUTION IH SCH ×2 (06:11→11:25)
[2020-06-16 06:20] LABS: ALBUMIN 2.9 g/dL (3.5-5.0); BILIRUBIN,TOTAL 0.3 mg/dL (0.2-1.0); CREATININE 0.8 mg/dL (0.5-1.5); POTASSIUM 3.4 mmol/L (3.5-5.1); TOTAL PROTEIN, SERUM 6.8 g/dL (6.0-8.3)
[2020-06-16] MEDS: INSULIN HUMULIN R 100 UNIT/ML 3ML SQ SCH ×5 (06:47→16:41)
[2020-06-16] MEDS: METOCLOPRAMIDE 10 MG/2 ML VIAL IVP SCH ×3 (07:30→16:41)
[2020-06-16 07:43] VITALS: BP 117/57
[2020-06-16] MEDS: HONEY 1 APPL/ML TUBE TP SCH (08:00)
[2020-06-16] MEDS: METOPROLOL TARTRATE 25 MG TAB PO SCH (08:50)
[2020-06-16] MEDS: DULOXETINE HCL 30 MG CAP PO SCH (08:50)
[2020-06-16] MEDS: POTASSIUM CHLORIDE 20 MEQ ERTAB PO PRN (08:50)
[2020-06-16] MEDS: GABAPENTIN 300 MG CAPSULE PO SCH ×2 (08:50→14:41)
[2020-06-16] MEDS: FAMOTIDINE 20MG TAB 20 MG TAB PO SCH (08:50)
[2020-06-16] MEDS ORDERED: FUROSEMIDE 20 MG TABLET PO SCH (09:00)
[2020-06-16] MEDS: INSULIN GLARGINE 100 UNITS/ML 10 ML VIAL SQ SCH (09:11)
[2020-06-16] MEDS: ENOXAPARIN SODIUM 30 MG/0.3 ML SQ SCH (09:12)
[2020-06-16] MEDS: VANCOMYCIN 1.5 GM in SODIUM CHLORIDE 0.9% 250 ML IV SCH (10:02)
[2020-06-16] MEDS ORDERED: AMOX500C2 PO (10:47)
[2020-06-16] MEDS ORDERED: DOXY100C2 PO (10:47)
[2020-06-16 10:58] VITALS: BP 129/61
--- NOTE | 2020-06-16 16:05 | NUR ---
HL REMOVED, CATHETER INTACT. DISCHARGE INSTRUCTIONS GIVEN, VERBALIZED UNDERSTANDING.
--- NOTE | 2020-06-16 16:15 | NUR ---
CM NOTE CM spoke to patient regarding [facility] and updates. CM obtained [facility] for [facility] health. Patient okay with continuing care with same home health. CM faxed updated clinical to home health. CM also obtained [facility] for PCP Dr. Fahad Holm. CM faxed requested medical record information to PCP. No other questions or concerns verbalized.
--- NOTE | 2020-06-18 14:47 | NUR ---
Transitional Care - Post Discharge Note Spoke with patient at number listed. As per Mrs Candelaria she is doing well. She states she has made all her follow up appointments to include home health appointment, and is taking discharge medications as ordered. Addendum: 06/18/20 at 1450 by SHAKIRA HARVEY Amended: Links added.
== END 2020-06-16 17:00 | disposition home health service (06) | DRG 871 ==
LOC: EDH 15:54 → EDHIP 19:14 → 3CH 06-08 00:28 → 2AH 06-09 19:28 → 4CH 06-10 01:37
PROVIDERS: ADMIT Internal Medicine; ATTEND Internal Medicine
PROC: 5A09357 Assistance with Respiratory Ventilation, Less than 24 Consecutive Hours, Continuous Positive Airway Pressure (ICD-10-PCS; principal; 2020-06-09)
DX: A41.9 Sepsis, unspecified organism (principal); J96.01 Acute respiratory failure with hypoxia; J15.212 Pneumonia due to Methicillin resistant Staphylococcus aureus; L03.116 Cellulitis of left lower limb; Z68.43 Body mass index [BMI] 50.0-59.9, adult; D84.9 Immunodeficiency, unspecified; L97.929 Non-pressure chronic ulcer of unspecified part of left lower leg with unspecified severity; E87.6 Hypokalemia; E66.01 Morbid (severe) obesity due to excess calories; Z20.828 Contact with and (suspected) exposure to other viral communicable diseases; F41.9 Anxiety disorder, unspecified; G47.33 Obstructive sleep apnea (adult) (pediatric); G89.29 Other chronic pain; I08.1 Rheumatic disorders of both mitral and tricuspid valves; I10 Essential (primary) hypertension; E10.622 Type 1 diabetes mellitus with other skin ulcer; M60.9 Myositis, unspecified; Z53.20 Procedure and treatment not carried out because of patient's decision for unspecified reasons; Z74.01 Bed confinement status; Z79.4 Long term (current) use of insulin; Z83.3 Family history of diabetes mellitus; Z86.718 Personal history of other venous thrombosis and embolism; Z87.01 Personal history of pneumonia (recurrent); Z90.721 Acquired absence of ovaries, unilateral
CPT/HCPCS: 36415; 36600; 70450; 71045; 71250; 71275; 73700; 73720; 80048; 80053; 80202; 81001; 82435; 82550; 82728; 82803; 82947; 82948; 83036; 83605; 83615; 83735; 83874; 83880; 84100; 84132; 84145; 84295; 84484; 85018; 85025; 85027; 85378; 85610; 85651; 85730; 86038; 86140; 86215; 86235; 86255; 86431; 86701; 87040; 87070; 87076; 87077; 87186; 87390; 87426; 92610; 93005; 93306; 93356; 93971; 94640; 94660; 94664; 94667; 94668; 94760; A4606; A9579; G0378; J1100; J1170; J1650; J1815; J1885; J1940; J2270; J2405; J2543; J2765; J2920; J3370; J3475; J3490; J7030; J7050; J7070; Q9967; U0003

== ENCOUNTER → 2021-05-07 | Outpatient (CLI) | payer OTHER ==
[~2021-05-07] MED LIST changes: +AMOX500C2 PO; +APIX5TAB PO; +DOXY100C5 PO; +DULO60CA64 PO; +GABA600T10 PO; +INSU100V3 SQ; -INSULIN REG; +METO25TA6 PO; -NPH SQ; +NPH,100V SQ; +TRAZ-187 PO; +TYL2 PO
== END | disposition home or self-care (01) ==
LOC: DTH 15:26
PROVIDERS: ATTEND Surgery
DX: E66.3 Overweight (principal); E11.9 Type 2 diabetes mellitus without complications; E78.00 Pure hypercholesterolemia, unspecified; K76.9 Liver disease, unspecified
CPT/HCPCS: 97803

== ENCOUNTER 2022-01-21 17:00 | Inpatient (IN) | payer OTHER ==
[~2022-01-21] VITALS: Ht 160 cm; Wt 156.9 kg
[2022-01-21 16:50] VITALS: BP 129/61
[~2022-01-21 17:00] MED LIST changes: -AMOX500C2 PO; -APIX5TAB PO; +CELE-84 PO; -DOXY100C5 PO; +GABA300C PO; -GABA600T10 PO; -INSU100V3 SQ; +INSULIN R SQ; +LEVO-171 PO; +METO-391 PO; -METO25TA6 PO; +NPH INSULIN SQ; -NPH,100V SQ; -TRAZ-187 PO; -TYL2 PO
[2022-01-21 17:12] LABS: BASOPHILS % (AUTO) 0.4 % (0.0-5.0); EOSINOPHILS % (AUTO) 2.1 % (0.0-8.0); HEMATOCRIT 41.6 % (36-48); LYMPHOCYTES % (AUTO) 16.3 % (21.0-51.0); MEAN CORPUSCULAR HGB CONC 30.5 g/dL (32.0-36.0); MEAN CORPUSCULAR VOLUME 88.5 fL (79-99); MONOCYTES % (AUTO) 5.8 % (3.0-13.0); PLATELET COUNT (AUTO) 259 K/uL (130-400); RED CELL DISTRIBUTION WIDTH 14.4 % (11.0-15.5); WHITE BLOOD COUNT (AUTO) 11.4 K/uL (4.8-10.8)
[2022-01-21 17:20] LABS: CREATININE 0.9 mg/dL (0.5-1.5); POTASSIUM 4.2 mmol/L (3.5-5.1)
[2022-01-21 17:21] LABS: INR 0.93 (0.85-1.15)
[2022-01-23] MEDS ORDERED: ACET-2079 PO (09:17)
[2022-01-26] VITALS (22 sets, daily range): BP systolic 119–154; BP diastolic 58–78
[2022-01-26] MEDS ORDERED: 0.9% NACL 500ML IV.SOLN 500 ML IV SCH (06:00)
[2022-01-26] MEDS ORDERED: BUPIVACAINE/PF 0.5% 30ML VIAL ONE (07:34)
[2022-01-26] MEDS ORDERED: HYDROMORPHONE 1 MG INJ ONE (08:03)
[2022-01-26] MEDS ORDERED: FAMOTIDINE 20MG VIAL IV ONE (08:03)
[2022-01-26] MEDS ORDERED: FENTANYL CITRATE PF 50 MCG/1 ML 2ML VIAL ONE (08:05)
[2022-01-26] MEDS ORDERED: PROPOFOL 10 MG/ML 20ML VIAL IV ONE (08:05)
[2022-01-26] MEDS ORDERED: ROCURONIUM 10MG/1ML SYR 10 MG/ML ML ONE ×2 (08:05→10:21)
[2022-01-26] MEDS ORDERED: MIDAZOLAM HCL 1 MG/ML 2ML VIAL ONE (08:05)
[2022-01-26] MEDS ORDERED: SUCCINYLCHOLINE CHLORIDE 20 MG/ML 10 ML VIAL ONE (08:05)
[2022-01-26] MEDS ORDERED: GLYCOPYRROLATE 1 MG/5 ML SYRINGE ONE (08:05)
[2022-01-26] MEDS ORDERED: DiphenhydrAMINE HCL 50 MG/ML VIAL ONE (08:09)
[2022-01-26] MEDS ORDERED: 0.9%NACL 1000ML 1,000 ML IV ONE (08:14)
[2022-01-26] MEDS: CEFAZOLIN SODIUM 1 GM VIAL IVP SCH ×2 (08:15→09:01)
[2022-01-26] MEDS ORDERED: PROPOFOL 1000 MG/100 ML 0 ML IV ONE (09:06)
[2022-01-26] MEDS ORDERED: LIDOCAINE PF 100MG/5ML (2%) SYRINGE 5ML ONE (09:07)
[2022-01-26] MEDS ORDERED: ONDANSETRON 4MG INJ ONE (09:23)
[2022-01-26] MEDS ORDERED: NEOSTIGMINE 5MG/5ML SYR IV ONE (10:38)
[2022-01-26] MEDS: LACTATED RINGERS 1000ML 1,000 ML IV SCH ×2 (11:00→19:00)
[2022-01-26] MEDS ORDERED: CEFAZOLIN SODIUM 3 GM in DEXTROSE 5%-WATER 100 ML IVP SCH (11:00)
[2022-01-26] MEDS ORDERED: METOCLOPRAMIDE 10 MG/2 ML VIAL ONE (11:15)
[2022-01-26] MEDS: INSULIN HUMULIN R 100 UNIT/ML 3ML SQ SCH ×3 (11:30→20:46)
[2022-01-26] MEDS: MORPHINE 4 MG SYG IVP PRN ×2 (14:50→20:36)
[2022-01-26] MEDS: CEFAZOLIN SODIUM 3 GM in DEXTROSE 5%-WATER 100 ML IVP SCH ×2 (15:11→23:00)
[2022-01-26] MEDS ORDERED: KETOROLAC 30MG VIAL (30MG/ML) IVP PRN (18:00)
[2022-01-26] MEDS: ENOXAPARIN SODIUM 30 MG/0.3 ML SQ SCH (20:34)
[2022-01-26] MEDS: FAMOTIDINE 20MG VIAL IV SCH (20:34)
[2022-01-26] MEDS: ONDANSETRON 4MG INJ IVP PRN (20:34)
[2022-01-26] MEDS ORDERED: CEFAZOLIN SODIUM 1 GM VIAL ONE ×3 (23:08→23:36)
[2022-01-27] VITALS (7 sets, daily range): BP systolic 99–142; BP diastolic 52–71
[2022-01-27] MEDS: LACTATED RINGERS 1000ML 1,000 ML IV SCH ×3 (03:00→19:33)
[2022-01-27] MEDS: ONDANSETRON 4MG INJ IVP PRN ×2 (03:10→15:09)
[2022-01-27] MEDS: MORPHINE 4 MG SYG IVP PRN ×4 (03:10→19:32)
[2022-01-27 05:00] LABS: BASOPHILS % (AUTO) 0.3 % (0.0-5.0); EOSINOPHILS % (AUTO) 0.1 % (0.0-8.0); HEMATOCRIT 42.5 % (36-48); LYMPHOCYTES % (AUTO) 12.6 % (21.0-51.0); MEAN CORPUSCULAR HEMOGLOBIN 27.2 pg (27.0-33.0); MEAN CORPUSCULAR HGB CONC 30.4 g/dL (32.0-36.0); MEAN CORPUSCULAR VOLUME 89.5 fL (79-99); NEUTROPHILS % (AUTO) 76.5 % (40.0-77.0); PLATELET COUNT (AUTO) 272 K/uL (130-400); RED BLOOD CELL COUNT(AUTO) 4.75 MIL/uL (4.00-5.50); RED CELL DISTRIBUTION WIDTH 14.4 % (11.0-15.5); WHITE BLOOD COUNT (AUTO) 11.9 K/uL (4.8-10.8)
[2022-01-27 05:14] LABS: POTASSIUM 4.3 mmol/L (3.5-5.1)
[2022-01-27] MEDS: INSULIN HUMULIN R 100 UNIT/ML 3ML SQ SCH ×4 (07:13→20:44)
[2022-01-27] MEDS: METOCLOPRAMIDE 10 MG/2 ML VIAL IVP PRN ×2 (07:29→19:32)
[2022-01-27] MEDS: FAMOTIDINE 20MG VIAL IV SCH ×2 (09:47→20:41)
[2022-01-27] MEDS: ENOXAPARIN SODIUM 30 MG/0.3 ML SQ SCH ×2 (09:49→20:42)
[2022-01-27] MEDS ORDERED: HYDROMORPHONE 1 MG INJ ONE (22:49)
[2022-01-28] MEDS: KETOROLAC 30MG VIAL (30MG/ML) IVP SCH ×5 (00:16→23:47)
[2022-01-28] MEDS: LACTATED RINGERS 1000ML 1,000 ML IV SCH ×3 (03:28→21:13)
[2022-01-28] MEDS: HYDROMORPHONE 1 MG INJ IVP PRN ×3 (03:28→21:04)
[2022-01-28 04:00] VITALS: BP 106/58
[2022-01-28 04:13] LABS: BASOPHILS % (AUTO) 0.3 % (0.0-5.0); HEMATOCRIT 41.7 % (36-48); MEAN CORPUSCULAR HEMOGLOBIN 27.5 pg (27.0-33.0); MEAN CORPUSCULAR HGB CONC 30.9 g/dL (32.0-36.0); MEAN CORPUSCULAR VOLUME 88.9 fL (79-99); MONOCYTES % (AUTO) 9.8 % (3.0-13.0); NEUTROPHILS % (AUTO) 73.5 % (40.0-77.0); PLATELET COUNT (AUTO) 246 K/uL (130-400); RED BLOOD CELL COUNT(AUTO) 4.69 MIL/uL (4.00-5.50); RED CELL DISTRIBUTION WIDTH 14.6 % (11.0-15.5); WHITE BLOOD COUNT (AUTO) 13.6 K/uL (4.8-10.8)
[2022-01-28 04:27] LABS: CREATININE 0.9 mg/dL (0.5-1.5); POTASSIUM 4.5 mmol/L (3.5-5.1)
[2022-01-28] MEDS: INSULIN HUMULIN R 100 UNIT/ML 3ML SQ SCH ×4 (06:47→21:16)
[2022-01-28 08:00] VITALS: BP 116/60
[2022-01-28] MEDS: FAMOTIDINE 20MG VIAL IV SCH ×2 (09:37→21:02)
[2022-01-28] MEDS: ENOXAPARIN SODIUM 30 MG/0.3 ML SQ SCH ×2 (09:37→21:01)
[2022-01-28 11:28] VITALS: BP 117/59
[2022-01-28 16:00] VITALS: BP 117/69
[2022-01-28 20:00] VITALS: BP 127/73
[2022-01-29] VITALS: BP 124/67
[2022-01-29] MEDS: LACTATED RINGERS 1000ML 1,000 ML IV SCH ×3 (03:00→21:00)
[2022-01-29 04:00] VITALS: BP 121/61
[2022-01-29] MEDS: HYDROMORPHONE 1 MG INJ IVP PRN ×2 (04:02→21:19)
[2022-01-29] MEDS: KETOROLAC 30MG VIAL (30MG/ML) IVP SCH ×3 (04:14→23:38)
[2022-01-29] MEDS: INSULIN HUMULIN R 100 UNIT/ML 3ML SQ SCH ×3 (06:06→21:06)
[2022-01-29 08:00] VITALS: BP 134/66
[2022-01-29] MEDS: FAMOTIDINE 20MG VIAL IV SCH ×2 (08:59→20:55)
[2022-01-29] MEDS: METOCLOPRAMIDE 10 MG/2 ML VIAL IVP PRN (08:59)
[2022-01-29] MEDS: ENOXAPARIN SODIUM 30 MG/0.3 ML SQ SCH ×2 (08:59→20:55)
[2022-01-29] MEDS: APAP/CODEINE 120/12MG 5ML PO PRN (09:00)
[2022-01-29 12:00] VITALS: BP 105/58
[2022-01-29 16:00] VITALS: BP 129/66
[2022-01-29 20:00] VITALS: BP 105/68
[2022-01-30] VITALS: BP 111/73
[2022-01-30] MEDS: LACTATED RINGERS 1000ML 1,000 ML IV SCH (02:00)
[2022-01-30] MEDS: KETOROLAC 30MG VIAL (30MG/ML) IVP SCH (03:59)
[2022-01-30 04:00] VITALS: BP 127/65
[2022-01-30] MEDS: HYDROMORPHONE 1 MG INJ IVP PRN (04:02)
[2022-01-30] MEDS: INSULIN HUMULIN R 100 UNIT/ML 3ML SQ SCH ×4 (05:59→23:14)
[2022-01-30 08:00] VITALS: BP 129/61
[2022-01-30] MEDS: APAP/CODEINE 120/12MG 5ML PO PRN (09:36)
[2022-01-30] MEDS: METOPROLOL SUCCINATE 50 MG TAB.SR.24H PO SCH ×2 (09:37→22:14)
[2022-01-30] MEDS: FAMOTIDINE 20MG VIAL IV SCH ×2 (09:38→22:13)
[2022-01-30] MEDS: ENOXAPARIN SODIUM 30 MG/0.3 ML SQ SCH ×2 (09:38→22:15)
[2022-01-30] MEDS: ONDANSETRON 4MG INJ IVP PRN (09:38)
[2022-01-30] MEDS: GABAPENTIN 300 MG CAPSULE PO SCH ×3 (09:38→22:14)
[2022-01-30] MEDS: LEVOTHYROXINE 75 MCG TABLET PO SCH (09:40)
[2022-01-30 12:00] VITALS: BP 109/57
[2022-01-30] MEDS ORDERED: IOHEXOL 350 MG/ML 100ML INFUS..BTL IV ONE (13:32)
[2022-01-30 16:00] VITALS: BP 119/55
[2022-01-30 20:16] VITALS: BP 112/72
[2022-01-31 00:30] VITALS: BP 122/62
[2022-01-31] MEDS: ONDANSETRON 4MG INJ IVP PRN (04:44)
[2022-01-31 05:00] VITALS: BP 115/55
[2022-01-31] MEDS: APAP/CODEINE 120/12MG 5ML PO PRN (05:03)
[2022-01-31] MEDS: LEVOTHYROXINE 75 MCG TABLET PO SCH (06:01)
[2022-01-31] MEDS: INSULIN HUMULIN R 100 UNIT/ML 3ML SQ SCH (07:30)
[2022-01-31 08:00] VITALS: BP 112/43
[2022-01-31] MEDS: METOPROLOL SUCCINATE 50 MG TAB.SR.24H PO SCH (09:34)
[2022-01-31] MEDS: FAMOTIDINE 20MG VIAL IV SCH (09:34)
[2022-01-31] MEDS: ENOXAPARIN SODIUM 30 MG/0.3 ML SQ SCH (09:34)
[2022-01-31] MEDS: GABAPENTIN 300 MG CAPSULE PO SCH (09:34)
== END 2022-01-31 12:00 | disposition home or self-care (01) | DRG 621 ==
LOC: DAHIP 01-26 07:08 → 4BH 01-26 12:19
PROVIDERS: ADMIT Surgery; ATTEND Surgery
PROC: 0D164ZA Bypass Stomach to Jejunum, Percutaneous Endoscopic Approach (ICD-10-PCS; principal; 2022-01-26 08:28)
PROC: 0DJ08ZZ Inspection of Upper Intestinal Tract, Via Natural or Artificial Opening Endoscopic (ICD-10-PCS; 2022-01-26 08:28)
DX: E66.01 Morbid (severe) obesity due to excess calories (principal); Z68.44 Body mass index [BMI] 60.0-69.9, adult; E11.9 Type 2 diabetes mellitus without complications; Z86.718 Personal history of other venous thrombosis and embolism; K80.20 Calculus of gallbladder without cholecystitis without obstruction
CPT/HCPCS: 36415; 43235; 71045; 74178; 80048; 82948; 84703; 85025; 85610; 85730; 87635; 93005; 93970; 94760; 97039; A4606; G0378; J0330; J0690; J1170; J1200; J1650; J1815; J1885; J2001; J2250; J2270; J2405; J2704; J2710; J2765; J3010; J3490; J7030; J7040; J7060; J7120; Q9967

== ENCOUNTER 2023-01-06 20:05 | Emergency (ER) | payer OTHER ==
[~2023-01-06] VITALS: Ht 160 cm; Wt 120.2 kg
[~2023-01-06 20:05] MED LIST changes: +ACET-2079 PO
[2023-01-06 23:10] LABS: BASOPHILS % (AUTO) 0.4 % (0.0-5.0); EOSINOPHILS % (AUTO) 1.3 % (0.0-8.0); HEMATOCRIT 40.9 % (36-48); LYMPHOCYTES % (AUTO) 30.7 % (21.0-51.0); MEAN CORPUSCULAR HEMOGLOBIN 28.4 pg (27.0-33.0); MEAN CORPUSCULAR HGB CONC 32.3 g/dL (32.0-36.0); MEAN CORPUSCULAR VOLUME 88.1 fL (79-99); MONOCYTES % (AUTO) 8.6 % (3.0-13.0); NEUTROPHILS % (AUTO) 58.8 % (40.0-77.0); PLATELET COUNT (AUTO) 296 K/uL (130-400); RED BLOOD CELL COUNT(AUTO) 4.64 MIL/uL (4.00-5.50); RED CELL DISTRIBUTION WIDTH 12.2 % (11.0-15.5); WHITE BLOOD COUNT (AUTO) 8.6 K/uL (4.8-10.8)
[2023-01-06 23:20] LABS: CREATININE 0.7 mg/dL (0.5-1.5); POTASSIUM 3.8 mmol/L (3.5-5.1)
[2023-01-06 23:26] LABS: ALBUMIN 3.2 g/dL (3.5-5.0); TOTAL PROTEIN, SERUM 7.6 g/dL (6.0-8.3)
[2023-01-07] MEDS ORDERED: AZIT250T9 PO (01:00)
[2023-01-07] MEDS ORDERED: ALBUHFA IH (01:00)
[2023-01-07] MEDS ORDERED: BENZ-226 PO (01:00)
[2023-01-07] MEDS ORDERED: CEFTRIAXONE 500MG VIAL ONE (01:00)
[2023-01-07] MEDS ORDERED: CEFTRIAXONE 500MG VIAL IM ONE (01:00)
[2023-01-07 01:08] VITALS: BP 132/84
== END 2023-01-07 01:17 | disposition home or self-care (01) ==
LOC: EDH 20:05
DX: J40 Bronchitis, not specified as acute or chronic (principal); R05.9 Cough, unspecified; I10 Essential (primary) hypertension; E11.9 Type 2 diabetes mellitus without complications; E03.9 Hypothyroidism, unspecified; F41.9 Anxiety disorder, unspecified; Z20.822 Contact with and (suspected) exposure to COVID-19; Z90.49 Acquired absence of other specified parts of digestive tract; Z79.899 Other long term (current) drug therapy
CPT/HCPCS: 99285; 71045; 87635; 84484; 80053; 85025; 87804 ×2; 81025; 36415; 93005; 96372; C9803; J0696

== ENCOUNTER 2023-01-18 08:25 | Emergency (ER) | payer OTHER ==
[~2023-01-18] VITALS: Ht 160 cm; Wt 117.9 kg
[~2023-01-18 08:25] MED LIST changes: +ALBUHFA IH; +AZIT250T9 PO; +BENZ-226 PO
[2023-01-18] MEDS ORDERED: PREDNISONE 20 MG TABLET PO ONE (11:30)
[2023-01-18] MEDS ORDERED: IPRATROPIUM/ALBUTEROL SULFATE 3 ML SOLUTION IH SCH (11:30)
[2023-01-18 12:21] LABS: BASOPHILS % (AUTO) 0.3 % (0.0-5.0); EOSINOPHILS % (AUTO) 2.3 % (0.0-8.0); HEMATOCRIT 37.8 % (36-48); LYMPHOCYTES % (AUTO) 16.7 % (21.0-51.0); MEAN CORPUSCULAR HEMOGLOBIN 30.8 pg (27.0-33.0); MEAN CORPUSCULAR HGB CONC 34.1 g/dL (32.0-36.0); MEAN CORPUSCULAR VOLUME 90.2 fL (79-99); MONOCYTES % (AUTO) 6.6 % (3.0-13.0); NEUTROPHILS % (AUTO) 73.8 % (40.0-77.0); PLATELET COUNT (AUTO) 220 K/uL (130-400); RED BLOOD CELL COUNT(AUTO) 4.19 MIL/uL (4.00-5.50); RED CELL DISTRIBUTION WIDTH 12.7 % (11.0-15.5)
[2023-01-18 12:25] LABS: CREATININE 0.7 mg/dL (0.5-1.5); POTASSIUM 3.9 mmol/L (3.5-5.1)
[2023-01-18 12:30] LABS: ALBUMIN 3.3 g/dL (3.5-5.0); TOTAL PROTEIN, SERUM 7.2 g/dL (6.0-8.3)
[2023-01-18 13:31] VITALS: BP 128/64
[2023-01-18] MEDS ORDERED: AMOX875T2 PO (13:39)
[2023-01-18] MEDS ORDERED: PRED20TA3 PO (13:39)
== END 2023-01-18 13:49 | disposition home or self-care (01) ==
LOC: EDH 08:25
DX: J40 Bronchitis, not specified as acute or chronic (principal); E10.9 Type 1 diabetes mellitus without complications; F41.9 Anxiety disorder, unspecified; M19.90 Unspecified osteoarthritis, unspecified site; F32.A Depression, unspecified; E03.9 Hypothyroidism, unspecified; Z79.51 Long term (current) use of inhaled steroids; Z79.899 Other long term (current) drug therapy; Z90.89 Acquired absence of other organs
CPT/HCPCS: 36415; 71045; 80053; 81025; 83605; 85025; 87040; 94640

== ENCOUNTER 2023-06-30 07:51 | Day surgery (SDC) | payer OTHER ==
[~2023-06-30] VITALS: Ht 160 cm; Wt 100.7 kg
[2023-06-30] VITALS (12 sets, daily range): BP systolic 97–120; BP diastolic 54–66; PULSE 71–84; RESP 15–20
[~2023-06-30 07:51] MED LIST changes: +0.9%NACL 1000ML 1,000 ML IV ONE; +AMOX875T2 PO; +CELE-125 PO; -CELE-84 PO; +PRED20TA3 PO
[2023-06-30] MEDS ORDERED: ONDA-104 PO (08:52)
[2023-06-30] MEDS ORDERED: SEMA2PEN SQ (08:52)
[2023-06-30] MEDS ORDERED: [UNRECOGNIZED DRUG - OTHER] PO (08:53)
[2023-06-30] MEDS ORDERED: PROPOFOL 10 MG/ML 20ML VIAL IV ONE (10:39)
== END 2023-06-30 12:35 | disposition home or self-care (01) ==
LOC: ENDO 07:51 → DAH 07:51 → ENDO 12:35
PROVIDERS: ATTEND Internal Medicine Gastroenterology
DX: K59.00 Constipation, unspecified (principal); D12.5 Benign neoplasm of sigmoid colon; K64.1 Second degree hemorrhoids; K52.89 Other specified noninfective gastroenteritis and colitis; K31.89 Other diseases of stomach and duodenum; R10.12 Left upper quadrant pain; R12 Heartburn; R11.2 Nausea with vomiting, unspecified; K92.1 Melena; E03.9 Hypothyroidism, unspecified; F41.9 Anxiety disorder, unspecified; F32.A Depression, unspecified; E11.9 Type 2 diabetes mellitus without complications; J45.909 Unspecified asthma, uncomplicated; Z98.84 Bariatric surgery status; Z82.49 Family history of ischemic heart disease and other diseases of the circulatory system; Z83.3 Family history of diabetes mellitus; Z82.5 Family history of asthma and other chronic lower respiratory diseases; Z80.1 Family history of malignant neoplasm of trachea, bronchus and lung; Z79.4 Long term (current) use of insulin; Z79.01 Long term (current) use of anticoagulants; Z79.890 Hormone replacement therapy; Z79.51 Long term (current) use of inhaled steroids; Z79.84 Long term (current) use of oral hypoglycemic drugs; Z90.49 Acquired absence of other specified parts of digestive tract; Z98.891 History of uterine scar from previous surgery; Z98.890 Other specified postprocedural states
CPT/HCPCS: 81025; 82948; 43239; 45385; J7030 ×2; J2704; A4620; A4215 ×2; A4223; A7002; A4222; A4221; A4663; A4216; A4606; J3490